=== PATIENT | male | born 1965 | race Caucasian/White ===

== ENCOUNTER 2019-06-14 13:11 | Outpatient (CLI) | payer MEDICAID ==
[~2019-06-14] VITALS: Ht 188 cm; Wt 96.2 kg
[2019-06-14 15:23] VITALS: BP 120/77
--- NOTE | 2019-06-14 19:30 | Consultation ---
DATE OF CONSULTATION: 06/14/2019 CONSULTING PHYSICIAN: Peewee Castellanos M.D. CHIEF COMPLAINT: Profound iron deficiency anemia. HISTORY OF PRESENT ILLNESS: This is a 54-year-old male, who was referred to us for evaluation of iron deficiency anemia. Apparently, he had a shoulder surgery, he was in a lot of pain. He states he was getting vodka everyday for pain management by himself. Apparently, he was not eating well and according to him he stated he felt maybe iron deficiency from not eating well made him profoundly anemic. Hemoglobin was in 6 range. He states since then he has been eating much better. He has not seen any obvious GI bleeding, but his last colonoscopy was about 5 years ago. PAST MEDICAL HISTORY: 1. Asthma. 2. GERD. 3. Kidney stones. 4. Hiatal hernia. PAST SURGICAL HISTORY: Shoulder surgery on the left side. MEDICATIONS: Please see medication reconciliation list. SOCIAL HISTORY: The patient drinks vodka. Denies any tobacco or drug abuse. ALLERGIES: No known drug allergies. REVIEW OF SYSTEMS: A 10-point review of systems was performed and pertinent positives in HPI. PHYSICAL EXAMINATION: VITAL SIGNS: Temperature 98.8, blood pressure 120/77, pulse 78, and respirations 20. HEENT: Normocephalic and atraumatic. Pale conjunctivae. NECK: Supple. No evidence of obvious lymphadenopathy. CARDIOVASCULAR: Regular rhythm. Plus S1 and S2. No obvious murmur. LUNGS: Clear to auscultation bilaterally. ABDOMEN: Positive bowel sounds. Soft and nontender. No rebound. No guarding. No peritoneal sign. EXTREMITIES: No cyanosis. No clubbing. No edema. ASSESSMENT AND PLAN: This is a 54-year-old male with profound iron deficiency anemia. Last colonoscopy was roughly about 5 years ago. He also has chronic GERD for which he is taking Prilosec on a daily basis. Our recommendation is for him to have endoscopy and colonoscopy. The patient was given the prescription for colon prep and instruction to risks and benefits of the procedure was explained to him. He was recommended to get it scheduled when authorization is obtained. Alexsandra LaneD. DR: SAYDA JOB#: [id number] CC:
[2019-06-15] MEDS ORDERED: FLONASE ALLERG9.9 ML NS (15:47)
[2019-06-15] MEDS ORDERED: FERROUS SULFAT325 MG ORAL (15:47)
[2019-06-15] MEDS ORDERED: PRILOSEC OTC20 MG ORAL (15:47)
[2019-06-15] MEDS ORDERED: CLARITIN10 M2 ORAL (15:47)
[2019-06-15] MEDS ORDERED: PROAIR HFA8.5 GM INH (15:47)
== END 2019-06-14 15:11 | disposition home or self-care (01) ==
LOC: PAN 13:11
DX: D50.9 Iron deficiency anemia, unspecified (principal); K21.9 Gastro-esophageal reflux disease without esophagitis; Z87.442 Personal history of urinary calculi
CPT/HCPCS: G0463

== ENCOUNTER 2019-09-27 13:46 | Outpatient (CLI) | payer MEDICAID ==
[~2019-09-27 13:46] MED LIST: CLARITIN10 M2 ORAL; FERROUS SULFAT325 MG ORAL; FLONASE ALLERG9.9 ML NS; PRILOSEC OTC20 MG ORAL; PROAIR HFA8.5 GM INH
--- NOTE | 2019-09-27 14:05 | General Progress Note ---
Assessment/Plan Assessment/Plan: gastritis internal hemorrhoids ra off ppi repeat colon in 5 years Subjective ROS Limited/Unobtainable: Yes Allergies: Coded Allergies: No Known Allergies (Unverified , 06/15/19) Objective General Appearance: alert EENT: normal ENT inspection Neck: supple Cardiovascular: normal rate Respiratory/Chest: lungs clear Abdomen: normal bowel sounds, non tender, soft Extremities: non-tender Peewee Castellanos MD Sep 27, 2019 14:05
== END 2019-09-27 15:46 | disposition home or self-care (01) ==
LOC: PAN 13:46
DX: K29.70 Gastritis, unspecified, without bleeding (principal); K64.8 Other hemorrhoids
CPT/HCPCS: 99212